=== PATIENT | male | born 1945 | race Caucasian/White ===

== ENCOUNTER 2016-12-21 05:52 | Day surgery (SDC) | payer OTHER, MEDICAID ==
[~2016-12-21] VITALS: Ht 165.1 cm; Wt 79.5 kg
[2016-12-21] VITALS (27 sets, daily range): BP systolic 132–179; BP diastolic 74–106; PULSE 58–74; RESP 15–22
[~2016-12-21 05:52] MED LIST: AMLO-147 PO; ASPI-664 PO; ATOR40TA68 PO; BENA10TA48 PO; METO-429 PO
[2016-12-21 06:42] LABS: ADD SCAN DIFF NO
[2016-12-21 06:50] LABS: BASOPHILS % 0.5 % (0.0-2.0); EOSINOPHILS # 0.2 10^3/ul (0.0-0.5); EOSINOPHILS % 3.3 % (0.0-7.0); HEMATOCRIT 46.8 % (42.0-52.0); HEMOGLOBIN 15.7 g/dl (14.0-18.0); LYMPHOCYTES # 1.6 10^3/ul (0.8-2.9); LYMPHOCYTES % 27.4 % (15.0-51.0); MEAN CORPUSCULAR HEMOGLOBIN 28.9 pg (29.0-33.0); MEAN CORPUSCULAR HGB CONC 33.5 g/dl (32.0-37.0); MEAN CORPUSCULAR VOLUME 86.2 fl (82.0-101.0); MEAN PLATELET VOLUME 11.1 fl (7.4-10.4); MONOCYTE # 0.4 10^3/ul (0.3-0.9); MONOCYTES % 6.9 % (0.0-11.0); NEUTROPHIL # 3.6 10^3/ul (1.6-7.5); NEUTROPHILS % 61.6 % (39.0-77.0); PLATELET COUNT 156 10^3/UL (140-415); RED BLOOD COUNT 5.43 10^6/ul (4.70-6.10); WHITE BLOOD COUNT 5.8 10^3/ul (4.8-10.8)
[2016-12-21] MEDS ORDERED: METO100T13 PO (06:53)
[2016-12-21] MEDS ORDERED: OMEP40CA6 PO (06:53)
[2016-12-21] MEDS ORDERED: TAMS0.4C2 PO (06:53)
[2016-12-21] MEDS ORDERED: ALFU10TA2 PO (06:53)
[2016-12-21] MEDS ORDERED: AMLO-147 PO (06:53)
[2016-12-21] MEDS ORDERED: ASPI81TA3 PO (06:53)
[2016-12-21] MEDS ORDERED: ATOR10TA65 PO (06:53)
[2016-12-21] MEDS ORDERED: ISOS10TA45 PO (06:53)
[2016-12-21] MEDS ORDERED: IODIXANOL LOCM 100 ML BTL ONE ×2 (07:00→08:54)
[2016-12-21] MEDS ORDERED: LIDOCAINE 1% (MDV) 20 ML INJ ONE (07:00)
[2016-12-21 07:01] LABS: INR 0.93; PROTIME 12.5 Sec (12.2-14.2)
[2016-12-21 07:03] LABS: PARTIAL THROMBOPLASTIN TIME 30.1 Sec (25.0-35.0)
[2016-12-21 07:17] LABS: CREATININE 1.03 mg/dl (0.61-1.24); POTASSIUM 4.1 mmol/L (3.5-5.1)
[2016-12-21] MEDS ORDERED: VERAPAMIL 5 MG INJ ONE (07:25)
[2016-12-21] MEDS ORDERED: HEPARIN 1000 UNITS/ML 10 ML INJ ONE (07:26)
[2016-12-21] MEDS ORDERED: FENTAnyl 50 MCG/ML VIAL ONE (08:31)
[2016-12-21] MEDS ORDERED: NITROGLYCERIN (IC) 100 MCG/ML INJ ONE (08:31)
[2016-12-21] MEDS ORDERED: MIDAZOLAM 1 MG/ML 2 ML INJ ONE (08:31)
[2016-12-21] MEDS ORDERED: SOD CHLORIDE 0.9% 1,000 ML IV SCH (09:44)
--- NOTE | 2016-12-21 09:47 | PDOCDIS ---
Discharge Instructions CONDITION Patient Condition: Good HOME CARE INSTRUCTIONS: Diet Instructions: Low Fat /Cholesterol ACTIVITY: Activity Restrictions: Avoid heavy lifting (x 3 days) Do not Drive (x 1 day) Pk Monaco DO December 21, 2016 09:47
[2016-12-21] MEDS ORDERED: ACETAMINOPHEN 325 MG TAB PO PRN (10:00)
[2016-12-21] MEDS ORDERED: AMLODIPINE 5 MG TAB PO SCH (10:04)
--- NOTE | 2016-12-21 11:30 | CARRPT ---
DATE OF PROCEDURE: 12/21/2016 PROCEDURES: 1. Left heart catheterization. 2. Right and left angiogram. 3. Interpretation and supervision of right and left coronary angiogram. 4. Left ventricular pressure measurements. 5. Right radial artery approach. PATIENT HISTORY: This is a 71-year-old male who presents with ongoing chest pain and shortness of b reath. FINDINGS: HEMODYNAMICS: 1. Aortic pressure 127/87. 2. LV pressure 124/70 EDP of 12. CORONARY ANATOMY: 1. RCA is a large caliber vessel and is dominant; there is a mid-20% stenosis, distal 10% stenosis. 2. Left main is a large caliber vessel with no significant disease. 3. Circumflex is a medium caliber vessel. There is a mid-20% stenosis. 4. LAD is a medium to large caliber vessel. There is a proximal 30% stenosis at the bifurcation of the diagonal, the ostial diagonal has a 20% stenosis. Mid vessel 20% stenosis, and distal LAD 10% stenosis. DESCRIPTION OF PROCEDURE: The patient was brought to the [employer] after informed consent. The eliot ent was prepped and draped as per protocol. Right radial access was obtained. A 5/6 Filipino sheath was placed in the right radial artery. Initially a 5-Filipino Morning Sun was used the left ventricle . Pressure measurements were obtained as well as pullback. Given its severe tortuosity in the subc lavian, we were unable to engage the right or the left coronary system with the 5-Filipino Morning Sun. We next switched out for a 6-Filipino JR4 catheter and engaged the RCA. We used a 5-Filipino JL3.5 diagnos tic catheter to engage the left main and angiogram was performed. There was no evidence of any sign ificant obstructive disease. All catheters and wires were removed. There were any complications. DIAGNOSIS: Mild nonobstructive coronary artery disease. COMPLICATIONS: None. BLOOD LOSS: Minimal. RECOMMENDATIONS: Aggressive medical management. Dictated By: CLEMENT JAMES/CHRISTA Conf#: [id number] DID#: [id number]
--- NOTE | 2016-12-21 15:39 | EN ---
Date/Time of Note Date/Time of Note DATE: 12/21/16 TIME: 15:37 Event Note Cardiology Cardiology Event Note Patient complaining of chest pain and arm pain to nurse. 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 Patient complaining of pins and needles sensation and sharp discomfort. When asked, patient has been having this pain off and on over the past few months. Pain at times is exacerbated with moving his left arm and pushing on his chest. He thinks his pain has actually improved after cardiac catheterization. ECG done post cardiac catheterization was no change compared to prior. Current symptoms do not appear cardiac in origin. Blood pressure on the higher end, would give a dose of Norvasc. Pk Monaco DO December 21, 2016 15:39
--- NOTE | 2016-12-22 14:11 | RADRPT ---
Vent Rate: 59 bpm RR Interval: 0 msec AR Interval: 190 msec QRS Duration: 100 msec QT Interval: 448 msec QTC Interval: 443 msec P-R-T [place]: 39 - 39 - 0 degrees Sinus bradycardia Possible Left atrial enlargement Left ventricular hypertrophy with repolarization abnormality ST \T\ T abnormalities. consider inferolateral ischemia. Abnormal ECG Electronically Signed By: Clovis Harrison [id number]
--- NOTE | 2016-12-22 14:11 | RADRPT ---
Vent Rate: 60 bpm RR Interval: 0 msec ND Interval: 204 msec QRS Duration: 94 msec QT Interval: 452 msec QTC Interval: 452 msec P-R-T [place]: 34 - 28 - 0 degrees Normal sinus rhythm Possible Left atrial enlargement ST amp; T wave abnormality, consider inferior ischemia ST amp; T wave abnormality, consider anterolateral ischemia Abnormal ECG Electronically Signed By: Clovis Harrison [id number]
== END 2016-12-21 16:55 | disposition home or self-care (01) ==
LOC: SDS 05:52
PROVIDERS: ATTEND Internal Medicine Cardiovascular Disease
DX: I25.10 Atherosclerotic heart disease of native coronary artery without angina pectoris (principal)
CPT/HCPCS: 80048; 85025; 85610; 85730; 93005; 93458; C1769; J1644; J2250; J3010; Q9967